=== PATIENT | female | born 1960 | race Caucasian/White ===

== ENCOUNTER → 2023-11-28 | Outpatient (CLI) | payer OTHER ==
[2023-11-28 13:19] VITALS: BP 139/70; PULSE 63; RESP 16; TEMP 98.5
--- NOTE | 2023-11-28 13:50 | P.GSCN ---
History of Present Illness Consult date: 11/28/23 Reason for Consult: mass left breast Requesting physician: Nay Bruce History of present illness: Emili is a 63 year old female seen in consultation for Leela Bruce regarding a lesion in her left breast. She had a left breast mammogram and ultrasound done on 09-23-23, the mammogram revealed a calcified retroareolar nodule and an ultrasound was recommended. The ultrasound revealed a 1.7 x 1.6 cm complex l esion with calcifications and internal blood flow and a lobular margin Impression: Solid partially calcified nodule left breast, suspicious and biopsy considered The patient underwent a ultrasound-guided core biopsy of the area of concern on 10-16-2023. The pathology revealed an adenoma with atypia. The recommendation was for surgical resection. She is uncertain as to when her right breast mammogram was done. She has been able to feel the lesion in he left breast for about three months now. It has gotten larger. It has been painful and created a red spot on the skin, this resolved. The pain is localized. It does not spread, it is sharp, and constant for several hours. She is not sure what precipitated this. She is not complaining of any nipple discharge. She has not had any surgery on her breast. This is the first breast biopsy. Caffeine: 8-10-cups coffee/day nicotine: vape pen; used to smoke 1 PPD for 30 years stopped 3 years ago chocolate occasional Family History: maternal aunt: 2 with breast cancer mother: lung cancer Hormonal History: menarche: 12 G0 menopause: 51 hormones: none Surgical History: fracture tibial plateau Medical HIstory: zoloft for anxiety high cholesterol osteoporesis Social HIstory: nicotine: as above alcohol: occasional drugs: THC gummie at night to sleep Review of Systems - Constitutional Reports sweats - EENT Eyes: denies blurred vision Ears: deny: decreased hearing, tinnitus Ears, nose, mouth and throat: Denies dysphagia - Breasts bilateral: as per HPI - Cardiovascular Denies chest pain, Denies shortness of breath - Respiratory Denies cough, Denies 7 - Gastrointestinal Gastrointestinal Comment(s): GERD Reports as per HPI - Genitourinary Genitourinary: Denies dysuria, Denies hematuria Menstruation: Reports postmenopausal - Musculoskeletal Musculoskeleta Comment(s): osteoporosis Reports as per HPI - Integumentary Denies rash, Denies unusual bruising - Neurological Denies headaches, Denies syncope - Psychiatric Reports anxiety - Endocrine Reports weight change - Hematologic/Lymphatic Denies easy bleeding, Denies easy bruising - Allergic/Immunologic Reports seasonal allergies Past Medical History History of Any Multi-Drug Resistant Organisms: None Reported Smoking Status: Former smoker, Vaper [facility] - Exam Vital Signs Temp Pulse Resp BP Pulse Ox 98.5 F 63 16 139/70 99 11/28/23 13:15 11/28/23 13:15 11/28/23 13:15 11/28/23 13:15 11/28/23 13:15 - General no distress - Eyes normal ocular movement - ENT no hearing loss - Neck trachea midline - Respiratory normal respiratory effort, clear to auscultation - Cardiovascular Heart Sounds: normal: S1, S2 - Abdomen Abdomen: soft, non tender, no guarding, no rigid, no rebound - Integumentary normal turgor - Neurologic no disoriented, no combative - Musculoskeletal normal gait - Psychiatric oriented to time, oriented to person, oriented to place, speech is normal, memory intact Breast Exam: BRA: 38C Inspection: Bilateral grade 3 ptosis, polypoid lesion right nipple Palpation: Right breast: Multi positional exam fibrocystic changes, polypoid lesion right nipple approximately 8 mm in size Right axilla: No adenopathy of concern Left breast: Multi positional exam fibrocystic changes, in the periareolar region at approximately 3:00 there is a proximately a 1.5 cm firm mass this corresponds to what is seen radiographically and what was biopsied Left axilla: No adenopathy of concern Results Left breast mammogram and ultrasound personally reviewed, right breast mammogram was not available Assessment and Plan Assessment: Impression: adenoma left breast with atypia [facility]IST pathology slides to be reviewed by our pathologist Obtain right breast mammogram Plan: Left breast needle localization lumpectomy via a mastopexy incision, left breast oncoplastic tissue transfer, right polypoid nipple lesion resection Risk and benefits of the procedure discussed with the patient. The patient understands the risks include but are not limited to bleeding, infection, reaction to the anesthetic. She wishes to proceed. CC: Nay Bruce
== END ==
LOC: WWCWWP 12:13
PROVIDERS: ATTEND Surgery
DX: R92.1 Mammographic calcification found on diagnostic imaging of breast (principal); N63.20 Unspecified lump in the left breast, unspecified quadrant; N60.89 Other benign mammary dysplasias of unspecified breast; Z87.891 Personal history of nicotine dependence; Z80.3 Family history of malignant neoplasm of breast

== ENCOUNTER → 2024-01-16 | Outpatient (CLI) | payer OTHER ==
--- NOTE | 2024-01-16 10:23 | P.PN ---
Subjective Progress Note Date: 01/16/24 Principal diagnosis: nodule left breast, right nipple lesion mass left breast, lesion right nipple Requesting physician: Nay Bruce History of present illness: Emili is a 63 year old female seen in consultation for Leela Bruce regarding a lesion in her left breast. She is seen via telehealth from [place], she has not seen her personally. She had a left breast mammogram and ultrasound done on 09-23-23, the mammogram revealed a calcified retroareolar nodule and an ultrasound was recommended. The ultrasound revealed a 1.7 x 1.6 cm complex lesion with calcifications and internal blood flow and a lobular margin Impression: Solid partially calcified nodule left breast, suspicious and biopsy considered The patient underwent a ultrasound-guided core biopsy of the area of concern on 10-16-2023. The pathology revealed an adenoma with atypia. The recommendation was for surgical resection. She is uncertain as to when her right breast mammogram was done. She has been able to feel the lesion in he left breast for about six months now. It has gotten larger. It has been painful and created a red spot on the skin, this resolved. The pain is localized. It does not spread, it is sharp, and constant for several hours. She is not sure what precipitated this. She is not complaining of any nipple discharge. She has not had any surgery on her breast. This is the first breast biopsy. On November 29, 2023 a request for pathology slides was sent to [facility]. The paitent is uncertain if a right breast mammogram was done. Caffeine: 8-10-cups coffee/day nicotine: vape pen; used to smoke 1 PPD for 30 years stopped 3 years ago chocolate occasional Family History: maternal aunt: 2 with breast cancer mother: lung cancer Hormonal History: menarche: 12 G0 menopause: 51 hormones: none Surgical History: fracture tibial plateau Medical HIstory: zoloft for anxiety high cholesterol osteoporesis Social HIstory: nicotine: as above alcohol: occasional drugs: THC gummie at night to sleep Review of Systems - Constitutional Reports sweats - EENT Eyes: denies blurred vision Ears: deny: decreased hearing, tinnitus Ears, nose, mouth and throat: Denies dysphagia - Breasts bilateral: as per HPI - Cardiovascular Denies chest pain, Denies shortness of breath - Respiratory Denies cough - Gastrointestinal Gastrointestinal Comment(s): GERD Reports as per HPI - Genitourinary Genitourinary: Denies dysuria, Denies hematuria Menstruation: Reports postmenopausal - Musculoskeletal Musculoskeleta Comment(s): osteoporosis Reports as per HPI - Integumentary Denies rash, Denies unusual bruising - Neurological Denies headaches, Denies syncope - Psychiatric Reports anxiety - Endocrine Reports weight change - Hematologic/Lymphatic Denies easy bleeding, Denies easy bruising - Allergic/Immunologic Reports seasonal allergies Past Medical History History of Any Multi-Drug Resistant Organisms: None Reported Smoking Status: Former smoker, Vaper Objective - Constitutional General appearance: Present: cooperative - EENT Eyes: Present: EOMI ENT: Present: hearing grossly normal - Neck Neck: Present: normal ROM - Respiratory Respiratory: bilateral: CTA - Cardiovascular Heart sounds: normal: S1, S2 - Integumentary Integumentary: Present: normal turgor - Musculoskeletal Musculoskeletal: Present: gait normal - Psychiatric Psychiatric: Present: A&O x's 3, appropriate affect, intact judgment & insight - Additional findings Additional findings: Breast Exam: BRA: 38C Inspection: Bilateral grade 3 ptosis, polypoid lesion right nipple Palpation: Right breast: Multi positional exam fibrocystic changes, polypoid lesion right nipple approximately 8 mm in size Right axilla: No adenopathy of concern Left breast: Multi positional exam fibrocystic changes, in the periareolar region at approximately 3:00 there is a proximately a 1.5 cm firm mass this corresponds to what is seen radiographically and what was biopsied Left axilla: No adenopathy of concern Assessment and Plan Assessment: Left breast mammogram and ultrasound personally reviewed, right breast mammogram was not available Impression: adenoma left breast with atypia pathology slides to be reviewed by our pathologist Obtain right breast mammogram Plan: right breast mammogram to be reviewed left breast slides to be reviewed medical clearance Nay Bruce Left breast needle localization lumpectomy via a mastopexy incision, left breast oncoplastic tissue transfer, right polypoid nipple lesion resection Risk and benefits of the procedure discussed with the patient. The patient understands the risks include but are not limited to bleeding, infection, reaction to the anesthetic. She wishes to proceed. CC: Nay Bruce Additional CC's: Nay Bruce
[2024-01-16 11:04] VITALS: BP 126/70; PULSE 67; RESP 18; TEMP 98.2
--- NOTE | 2024-01-16 12:39 | MM ---
Reason for Exam: Follow-up at short interval from prior study. Last screening mammogram was performed 4 month(s) ago. Patient History: Menarche at age 11. Patient has no children. Postmenopausal. Maternal aunt had breast cancer at or over age 50. Maternal aunt had breast cancer at or over age 50. Risk Values: Leigh 5 year model risk: 1.8%. NCI Lifetime model risk: 7.2%. Prior Study Comparison: 02/12/2022 Bilateral MG 3D screening mammo w/cad, Unknown. 09/23/2023 Left MG 3D diag mammo wo cad LT - 2, Unknown. 10/08/2023 Left MG 3D work up w/cad LT - 2, Unknown. Tissue Density: Right: The breasts are heterogeneously dense, which may obscure small masses. Findings: Analyzed By CAD. Benign oil cyst calcifications redemonstrated on the right. There is some increased focal asymmetry upper-outer quadrant at a middle depth. 3-D images suggest underlying nodularity. On additional views, particularly on the spot 3-D MLO view, there is persistence of low 1.2 cm area of nodular asymmetric density not well localized on the spot 3-D CC view. Further ultrasound evaluation recommended. Overall Assessment: Incomplete: need additional imaging evaluation, BI-RAD 0 Management: Diagnostic Breast Ultrasound of the right breast. Superior half. Electronically signed and approved by: Kim Pritchard M.D. Radiologist
--- NOTE | 2024-01-16 13:23 | USB ---
Reason for Exam: Follow-up at short interval from prior study. Patient History: Menarche at age 11. Patient has no children. Postmenopausal. Maternal aunt had breast cancer at or over age 50. Maternal aunt had breast cancer at or over age 50. Risk Values: Leigh 5 year model risk: 1.8%. NCI Lifetime model risk: 7.2%. Technique: Method: Targeted. Prior Study Comparison: 02/12/2022 Bilateral MG 3D screening mammo w/cad, Unknown. 09/23/2023 Left MG 3D diag mammo wo cad LT - 2, Unknown. 10/08/2023 Left MG 3D work up w/cad LT - 2, Unknown. Findings: The upper section of the breast of the right breast, the axilla of the right breast and the retroareolar of the right breast were scanned. Targeted ultrasound superior half of the right breast from 9:00 to 12:00 including scanning of the subareolar region and axilla. The 12:00 position, 4 cm from the nipple, there is a large hypoechoic shadowing area measuring 4.4 cm, suspected island of dense tissue. Reassess in 6 months. Otherwise, scattered benign cysts are present at 9:00, 10:00, 11:00, and 1:00 varying in size but measuring up to 1.5 cm. No axillary lymphadenopathy. Overall Assessment: Probably benign, BI-RAD 3 Management: Diagnostic Mammogram of the right breast in 6 months. Diagnostic Breast Ultrasound of the right breast in 6 months. Also, continue with planned surgical excision left breast. Results were given to the patient verbally at the time of exam. Electronically signed and approved by: Kim Pritchard M.D. Radiologist
== END ==
LOC: WWCWWP 09:48
PROVIDERS: ATTEND Surgery
DX: Z12.31 Encounter for screening mammogram for malignant neoplasm of breast (principal); R92.8 Other abnormal and inconclusive findings on diagnostic imaging of breast; N63.20 Unspecified lump in the left breast, unspecified quadrant; N63.10 Unspecified lump in the right breast, unspecified quadrant; Z80.3 Family history of malignant neoplasm of breast; Z78.0 Asymptomatic menopausal state; Z87.891 Personal history of nicotine dependence

== ENCOUNTER 2024-01-28 09:54 | Day surgery (SDC) | payer OTHER ==
[~2024-01-28 09:54] MED LIST: HYDROmorphone 0.5 MG/0.5 ML SYRINGE IVP PRN; LIDOCAINE 1% (10MG/ML) FOR IV START INTRADERMA PRN; MIDAZOLAM 2 MG/2 ML VIAL IV PRN
[2024-01-28] MEDS: IV FLUID CONTINUATION 1,000 ML IV ONE (10:30)
[2024-01-28] MEDS: ACETAMINOPHEN TAB 500 MG TAB PO PRN (11:00)
[2024-01-28] MEDS: ALPRAZolam 0.25 MG TAB PO STA (11:00)
[2024-01-28] MEDS: ONDANSETRON 4 MG/2 ML VIAL IVP ONE (11:01)
[2024-01-28] MEDS: DEXAMETHASONE SOD PHOSPHATE 4 MG/ML 1 ML VIAL IV ONE (11:01)
[2024-01-28] MEDS: LACTATED RINGERS 1,000 ML IV SCH (11:01)
[2024-01-28 11:02] LABS: Basophils % (A) 1 %; Eosinophils # (A) 0.1 k/uL (0-0.7); Eosinophils % (A) 2 %; HCT 39.7 % (34.0-46.0); HGB 13.3 gm/dL (11.4-16.0); Lymphocytes # (A) 1.5 k/uL (1.0-4.8); Lymphocytes % (A) 23 %; MCH 30.6 pg (25.0-35.0); MCHC 33.4 g/dL (31.0-37.0); MCV 91.7 fL (80.0-100.0); Mean Platelet Volume 7.9; Monocytes # (A) 0.3 k/uL (0-1.0); Monocytes % (A) 5 %; Neutrophils # (A) 4.2 k/uL (1.3-7.7); Neutrophils % (A) 67 %; Platelet Count 287 k/uL (150-450); RBC 4.33 m/uL (3.80-5.40); RDW 13.5 % (11.5-15.5); WBC 6.3 k/uL (3.8-10.6)
[2024-01-28] MEDS: LIDOCAINE 1% INJ 10MG/ML (20 ML MDV) SQ ONE ×2 (11:39→15:43)
[2024-01-28] MEDS: HEPARIN SODIUM,PORCINE 5,000 UNIT/ML 1 ML VIAL SQ PRN (12:04)
[2024-01-28] MEDS ORDERED: LIDOCAINE 1% INJ 10MG/ML (20 ML MDV) ONE (14:22)
[2024-01-28] MEDS ORDERED: MIDAZOLAM 2 MG/2 ML VIAL ONE (14:22)
[2024-01-28] MEDS ORDERED: PROPOFOL 10 MG/ML 20 ML VIAL IV ONE (14:22)
[2024-01-28] MEDS ORDERED: fentaNYL (PF) 50 MCG/ML 2 ML AMP ONE (14:22)
[2024-01-28] MEDS ORDERED: ePHEDrine 50 MG/ML 1 ML VIAL ONE (14:22)
[2024-01-28] MEDS: LACTATED RINGERS 1,000 ML IV ONE (15:47)
--- NOTE | 2024-01-28 16:03 | P.BCAON ---
Date of Procedure: 01/28/24 Preoperative Diagnosis: Polypoid lesion right nipple, DCIS left breast Postoperative Diagnosis: Same Procedure(s) Performed: Excision polypoid lesion right nipple, left breast needle localization lumpectomy, oncoplastic tissue transfer 68.5 cm, mastopexy Anesthesia: MORIS Surgeon: Reina Lema Estimated Blood Loss (ml): 30 IV fluids (ml): 500 Pathology: other (Right nipple lesion, left breast lesion) Condition: stable Disposition: same day Indications for Procedure: Polypoid lesion right nipple, DCIS left breast Operative Findings: Dense breast tissue on the left Description of Procedure: The patient was first seen in the preoperative area where the left breast was marked for a mastopexy incision. The elevation of the areolar complex was 3 cm on the meridian line. Prior to that she had been seen in the radiology department where needle localization of the area of concern in the left breast was performed. The patient was then brought to the operative suite. Following induction of anesthesia the right and left breast were prepped and draped in a sterile fashion. The right breast was approached initially. A polypoid lesion on the nipple was grasped. This was excised. The base was cauterized. A 4-0 nylon suture was placed. After we are sure that hemostasis was attained gloves and instruments were changed and the left breast was approached. The markings for the mastopexy as it incision were utilized in the left breast. D epithelialization of this tissue was performed. The breast parenchyma was then entered. The dissection was carried down to the shaft of the needle. Surrounding tissue was removed. The specimen was 7 x 5.5 cm in size. Radiograph was performed and the lesion as well as the needle and the clip were identified. Following this the cavity was well evaluated. There was some concern that there may be a positive anterior and posterior margin. Anteriorly we were in the subcutaneous tissue directly under the nipple areolar complex. Posteriorly additional tissue was obtained to the pectoralis muscle. All margins were painted for orientation. The cavity was then well irrigated. After we are sure that hemostasis was attained titanium clips were placed. Surgicel in powder form was placed. Medially mobilization of 5 x 3 cm was performed and laterally a pillar 5 x 3 cm was performed. The medial and lateral pillars were brought together to close the defect. Total oncoplastic tissue transfer was 68.5 cm. After the defect had been closed the subcutaneous tissue was closed using 3-0 Vicryl suture. The subcuticular closure was with a 4-0 Monocryl. A 4-0 nylon was used to close the skin. All instrument and sponge counts were correct at the end of the case. 10 cc of 1% lidocaine were injected into the incision. The patient tolerated the procedure in stable condition. A sterile dressing was applied.
[2024-01-28 16:04] VITALS: TEMP 97
--- NOTE | 2024-01-28 16:06 | MM ---
Risk Values: Leigh 5 year model risk: 1.8%. NCI Lifetime model risk: 7.2%. Electronically signed and approved by: Navneet Olivas D.O. Radiologis
[2024-01-28 17:34] VITALS: BP 122/66; PULSE 91; RESP 18
--- NOTE | 2024-02-06 10:25 | MM ---
Risk Values: Leigh 5 year model risk: 1.8%. NCI Lifetime model risk: 7.2%. Prior Study Comparison: 09/23/2023 Left MG 3D diag mammo wo cad LT - 2, Unknown. 10/08/2023 Left MG 3D work up w/cad LT - 2, Unknown. 01/16/2024 Right MG 3D diag mammo w/cad RT, [facility]. Pathology Description: Approach: CC FA Needle Type: 7 cm Kopan The needle localization procedure with wire placement for surgical excision was explained to the patient. Benefits, alternatives, and risks were discussed. An informed consent was then obtained. A timeout was performed. The overlying skin was prepped in usual sterile fashion. Lidocaine was used as anesthetic into the skin and subcutaneous tissue up to the level of area of concern. A 7 cm needle was used. It was placed using a superior craniocaudal approach under mammographic guidance. Subsequent 90 degrees mammogram show the needle to be in satisfactory position relative to the targeted area. The wire was placed and the needle was withdrawn. The wire was fixed to patient's skin. Images were reviewed surgeon prior to surgery. The patient tolerated the procedure well without any immediate complication. The patient was kept in the radiology department for short stay after the procedure and then taken to surgery for surgical excision. Specimen: Biopsy marker, area of concern calcification and wire are identified in specimen mammogram. Impression: 1. Successful needle localization with wire placement and surgical excision of biopsy marker. [facility], , 01/28/2024 4:03 PM. Pathology Results: Result: Malignant, Invasive ductal carcinoma. Pathology and radiology were reviewed. Findings are concordant. A. LEFT BREAST, LUMPECTOMY: High grade invasive ductal carcinoma with high grade DCIS with microcalcification and comedo necrosis associated with sclerotic fibroadenoma (see Surgical Pathology Cancer Case Summary and comment). Invasive carcinoma closely approaches available posterior margin area. Invasive carcinoma measures 2 mm from closest available anterior margin (see comment). All other margins negative for invasive carcinoma. All margins negative for DCIS with DCIS measuring 2 mm from closest available anterior margin. Positive for lymphovascular invasion. B. POLYPOID LESION RIGHT NIPPLE, EXCISION: Benign polypoid fibroepithelial polyp/skin tag. C. NEW POSTERIOR MARGIN, LEFT BREAST, EXCISION: Intermediate to high grade DCIS (9 mm in greatest dimension) present at new posterior margin (less than 1 mm area of cauterized new posterior margin involved by DCIS) See Surgical Pathology Cancer Case Summary and comment. New posterior margin negative for invasive carcinoma. Overall Assessment: Malignant Management: Surgical Consultation of the left breast. Electronically signed and approved by: Navneet Olivas D.O. Radiologis
== END 2024-01-28 17:31 | disposition home or self-care (01) ==
LOC: OR 09:54
PROVIDERS: ATTEND Surgery
DX: D05.12 Intraductal carcinoma in situ of left breast (principal); L91.8 Other hypertrophic disorders of the skin; E78.5 Hyperlipidemia, unspecified; J44.9 Chronic obstructive pulmonary disease, unspecified
CPT/HCPCS: 76098; 85025; 88304; 88305; 88307; 88341; 88342

== ENCOUNTER → 2024-02-07 | Outpatient (CLI) | payer OTHER ==
[2024-02-07 12:36] VITALS: BP 138/78; PULSE 58; RESP 16; TEMP 98.2
--- NOTE | 2024-02-07 13:14 | P.PN ---
Subjective Progress Note Date: 02/07/24 Principal diagnosis: invasive ductal cancer left breast Subjective Progress Note Date: 02/07/24 Principal diagnosis: nodule left breast, right nipple lesion resected mass left breast, lesion right nipple resected IDC Requesting physician: Nay Bruce History of present illness: Emili is a 63 year old female seen in consultation for Leela Bruce regarding a lesion in her left breast. She was seen via telehealth from [place], she has not seen her personally. She had a left breast mammogram and ultrasound done on 09-23-23, the mammogram revealed a calcified retroareolar nodule and an ultrasound was recommended. The ultrasound revealed a 1.7 x 1.6 cm complex lesion with calcifications and internal blood flow and a lobular margin Impression: Solid partially calcified nodule left breast, suspicious and biopsy considered The patient underwent a ultrasound-guided core biopsy of the area of concern on 10-16-2023. The pathology revealed an adenoma with atypia. The recommendation was for surgical resection. She is uncertain as to when her right breast mammogram was done. She has been able to feel the lesion in he left breast for about six months now. It has gotten larger. It has been painful and created a red spot on the skin, this resolved. The pain is localized. It does not spread, it is sharp, and constant for several hours. She is not sure what precipitated this. She is not complaining of any nipple discharge. She has not had any surgery on her breast. This is the first breast biopsy. On November 29, 2023 a request for pathology slides was sent to [facility]. The paitent is uncertain if a right breast mammogram was done. Caffeine: 8-10-cups coffee/day nicotine: vape pen; used to smoke 1 PPD for 30 years stopped 3 years ago chocolate occasional right breast mammogram done on 01-16-24 and repeat in [address] Pritchard left breast pathology reviewed by our pathologist and upgraded to DCIS patient underwent needle localization and excision on 01-29-24 and invasive cancer (13 mm) as well as DCIS (11 mm) noted; DCIS at cauterized margin posterior resection on the pect muscle Family History: maternal aunt: 2 with breast cancer mother: lung cancer Hormonal History: menarche: 12 G0 menopause: 51 hormones: none Surgical History: fracture tibial plateau Medical HIstory: zoloft for anxiety high cholesterol osteoporesis Social HIstory: nicotine: as above alcohol: occasional drugs: THC gummie at night to sleep Review of Systems - Constitutional Reports sweats - EENT Eyes: denies blurred vision Ears: deny: decreased hearing, tinnitus Ears, nose, mouth and throat: Denies dysphagia - Breasts bilateral: as per HPI - Cardiovascular Denies chest pain, Denies shortness of breath - Respiratory Denies cough - Gastrointestinal Gastrointestinal Comment(s): GERD Reports as per HPI - Genitourinary Genitourinary: Denies dysuria, Denies hematuria Menstruation: Reports postmenopausal - Musculoskeletal Musculoskeleta Comment(s): osteoporosis Reports as per HPI - Integumentary Denies rash, Denies unusual bruising - Neurological Denies headaches, Denies syncope - Psychiatric Reports anxiety - Endocrine Reports weight change - Hematologic/Lymphatic Denies easy bleeding, Denies easy bruising - Allergic/Immunologic Reports seasonal allergies Past Medical History History of Any Multi-Drug Resistant Organisms: None Reported Smoking Status: Former smoker, Vaper Objective - Vital Signs Vital signs: Vital Signs Temp 98.2 F 02/07/24 12:33 Pulse 58 L 02/07/24 12:33 Resp 16 02/07/24 12:33 BP 138/78 02/07/24 12:33 Pulse Ox 98 02/07/24 12:33 FiO2 Intake & Output 02/06/24 02/07/24 02/07/24 18:59 06:59 18:59 Weight 78.925 kg - Constitutional General appearance: Present: cooperative - EENT Eyes: Present: EOMI ENT: Present: hearing grossly normal - Neck Neck: Present: normal ROM - Respiratory Respiratory: bilateral: CTA - Cardiovascular Rhythm: regular Heart sounds: normal: S1, S2 - Integumentary Integumentary: Present: normal turgor - Musculoskeletal Musculoskeletal: Present: gait normal - Psychiatric Psychiatric: Present: A&O x's 3, appropriate affect, intact judgment & insight - Additional findings Additional findings: Breast Exam: BRA: 38C Inspection: Right nipple clean and dry, left breast incision clean and dry Palpation: Right breast: Multi positional exam fibrocystic changes Right axilla: No adenopathy of concern Left breast: Incision clean and dry left breast from recent lumpectomy Left axilla: No adenopathy of concern Assessment and Plan Assessment: Impression: Left breast lumpectomy 1.3 cm invasive ductal carcinoma margins negative, 1.1 cm ductal carcinoma in situ focal positive margin posteriorly on the pectoralis muscle; reexcision however since this is dissected posteriorly to the pectoralis muscle it was not felt that reexcision would be beneficial. Plan: Left breast sentinel node injection, left sentinel node biopsy, possible left axillary node dissection The patient's case has been discussed with Dr. Domingo Martinez. He is in agreement that a sentinel node biopsy would be reasonable approach. I have discussed this with the patient as well as her brother who is a cardiothoracic surgeon. Risk and benefits of the procedure are discussed. Risk include but are not limited to bleeding, infection, reaction to the anesthetic. Additionally there could be some decrease sensation to the inner arm or lymphedema. She understands and wishes to proceed. CC: Nay Bruce
== END ==
LOC: WWCWWP 11:01
PROVIDERS: ATTEND Surgery
DX: C50.912 Malignant neoplasm of unspecified site of left female breast (principal); N63.10 Unspecified lump in the right breast, unspecified quadrant; Z80.3 Family history of malignant neoplasm of breast; Z87.891 Personal history of nicotine dependence; Z17.1 Estrogen receptor negative status [ER-]

== ENCOUNTER 2024-02-11 10:03 | Day surgery (SDC) | payer OTHER ==
[~2024-02-11 10:03] MED LIST changes: +fentaNYL (PF) 50 MCG/ML 2 ML AMP IVP PRN
[2024-02-11] MEDS: IV FLUID CONTINUATION 1,000 ML IV ONE (10:20)
[2024-02-11] MEDS: DEXAMETHASONE SOD PHOSPHATE 4 MG/ML 1 ML VIAL IV ONE (10:46)
[2024-02-11] MEDS: ONDANSETRON 4 MG/2 ML VIAL IVP ONE (10:46)
[2024-02-11] MEDS: LACTATED RINGERS 1,000 ML IV SCH (10:46)
[2024-02-11] MEDS: ACETAMINOPHEN TAB 500 MG TAB PO PRN (10:47)
[2024-02-11 10:57] VITALS: RESP 16
[2024-02-11] MEDS: HEPARIN SODIUM,PORCINE 5,000 UNIT/ML 1 ML VIAL SQ PRN (11:11)
[2024-02-11] MEDS ORDERED: LIDOCAINE 1% INJ 10MG/ML (20 ML MDV) ONE (13:03)
[2024-02-11] MEDS ORDERED: PROPOFOL 10 MG/ML 20 ML VIAL IV ONE (13:03)
[2024-02-11] MEDS ORDERED: KETOROLAC 15 MG/ML 1 ML VIAL ONE (13:03)
[2024-02-11] MEDS ORDERED: GLYCOPYRROLATE 0.2 MG/ML 2 ML VIAL ONE (13:03)
[2024-02-11] MEDS ORDERED: SUCCINYLCHOLINE CHLORIDE 200 MG/10 ML VIAL IV ONE (13:03)
[2024-02-11] MEDS ORDERED: fentaNYL (PF) 50 MCG/ML 2 ML AMP ONE (13:03)
--- NOTE | 2024-02-11 13:03 | NM ---
EXAMINATION TYPE: NM sentinel node injection DATE OF EXAM: 02/11/2024 COMPARISON: NONE CLINICAL INDICATION: Female, 63 years old with history of C50.412; TECHNIQUE AND FINDINGS: The procedure of sentinel lymph node injection was explained to the patient. The benefits, alternatives, and risks were discussed. An informed consent was then obtained. Overlying skin is cleaned with sterile alcohol. Following this, 549 uCi Tc99m Tilmanocept was inject ed in the upper outer aspect of the left nipple intradermally. The patient tolerated the procedure well without any immediate complication. The patient was kept in the radiology department for short stay after the procedure and then taken to surgery for surgical p rocedure what is presumed intraoperative gamma probe will be used for sentinel lymph node detection. IMPRESSION: Left breast radiotracer injection for sentinel node localization as above. [facility], , 02/11/2024 1:01 PM
[2024-02-11] MEDS: LIDOCAINE 1% INJ 10MG/ML (20 ML MDV) SQ ONE ×2 (13:28→13:53)
--- NOTE | 2024-02-11 13:50 | P.NAPBC ---
NAPBC Queries - NAPBC Queries Was patient's case review presented at [facility] tumor board? If no, comment.: Yes Was patient's pathology reviewed at [facility]? If no, comment.: Yes Was breast conservation surgery offered? If no, comment.: Yes Was sentinel node biopsy offered? If no, comment.: Yes Was diagnosis confirmed by percutaneous core biopsy? If no, comment.: Yes Is patient mastectomy patient?: No Was a preop referral to reconstructive surgeon offered?: No Clinical Stage: T1 N0 M0 ER negative UT negative HER2 pending invasive ductal carcinoma left breast
--- NOTE | 2024-02-11 13:53 | P.BCAON ---
Date of Procedure: 02/11/24 Preoperative Diagnosis: Left breast invasive ductal carcinoma Postoperative Diagnosis: Same Procedure(s) Performed: Left sentinel node biopsy Anesthesia: MORIS Surgeon: Reina Lema Estimated Blood Loss (ml): 5 IV fluids (ml): 500 Pathology: other (Friendship node left axilla) Operative Findings: Palpable adenopathy left axilla Description of Procedure: The patient was seen first by the radiologist and periareolar injection of radial tracer was performed. The patient was brought to the operative suite and following induction of anesthesia the neoprobe was used to interrogate the axilla. Radiotracer had traveled to the axilla. An incision was made at the area of greatest activity. It was carried down into the subcutaneous tissue to the axillary tissue. 4 lymph nodes which were radioactive were identified. The first had a 10-second count of 1078, the second a 10-second count of 364, and the third a 10-second count of 1443, the fourth a 10-second count of 1259. The background 10-second count was 7. No additional adenopathy of concern was palpable. The wound was well irrigated. The deep tissues were closed using 3-0 Vicryl suture. The skin was closed using 4-0 Monocryl. The patient tolerated the procedure in stable condition. All instrument and sponge counts were correct at the end of the case. Surgical glue was applied to the incision. 10 cc of 1% lidocaine were injected into the area of the incision. The nylon suture from prior lumpectomy in the periareolar region was removed and surgical glue was applied. - Sentinal Node Biopsy Operation performed with curative intent: Yes Tracer(s) used in upfront surgery (non-neoadjuvant): radioactive tracer Tracer(s) used in the neoadjuvant setting: N/A All nodes present at end of dye-filled channel removed: N/A All significantly radioactive nodes were removed: Yes All palpably suspicious nodes were removed: Yes Clipped positive nodes identified and removed: N/A
[2024-02-11 14:15] VITALS: TEMP 97.1
[2024-02-11 15:57] VITALS: BP 142/71; PULSE 75
== END 2024-02-11 10:46 | disposition home or self-care (01) ==
LOC: OR 10:03
PROVIDERS: ATTEND Surgery
DX: C50.412 Malignant neoplasm of upper-outer quadrant of left female breast
CPT/HCPCS: 38792; 88307; 88341; 88342

== ENCOUNTER → 2024-02-20 | Outpatient (CLI) | payer OTHER ==
[2024-02-20 15:26] VITALS: BP 140/73; PULSE 63; RESP 17; TEMP 98.4
--- NOTE | 2024-02-20 16:19 | P.PN ---
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 [id number] pending She therefore underwent a left breast sentinal node biopsy on 02-11-24. Four nodes were removed. 1 of 4 (+) from mmacrometastatic disease. Examination: lungs: Clear Heart: Regular rate and rhythm Incision: Breast and axilla clean and dry Impression: T1 N1 M0 ER negative DC negative HER2 question invasive left breast ductal carcinoma Plan: Appointment with medical oncology Appointment radiation oncology Follow-up here in 4 months CC: Leela Bruce Functional assessment: Arm abduction past Copy of pathology report given to patient post op education done 02-20-24 Objective - Vital Signs Vital signs: Vital Signs Temp 98.4 F 02/20/24 15:23 Pulse 63 02/20/24 15:23 Resp 17 02/20/24 15:23 BP 140/73 02/20/24 15:23 Pulse Ox 96 02/20/24 15:23 FiO2 Intake & Output 02/19/24 02/20/24 02/20/24 18:59 06:59 18:59 Weight 77.564 kg
== END ==
LOC: WWCWWP 13:50
PROVIDERS: ATTEND Surgery
DX: D05.12 Intraductal carcinoma in situ of left breast (principal)

== ENCOUNTER → 2024-03-03 | Outpatient (CLI) | payer OTHER ==
--- NOTE | 2024-03-03 19:10 | CT ---
EXAMINATION TYPE: CT ChestAbdPelvis w con CT DLP: 957.2 mGycm, Automated exposure control for dose reduction was used. DATE OF EXAM: 03/03/2024 3:23 PM COMPARISON: None. CLINICAL INDICATION: Female, 63 years old with history of C50.412 breast ca; [facility], Recently diagnosed with breast CA, PET scan was denied for unknown reason. Technique: CT ChestAbdPelvis w con; Multiple axial images were obtained. Two-dimensional coronal and sagittal reconstructions were obtained. Contrast used:100ml mL of Isovue 300 with IV Contrast, (None if empty) Oral contrast used: with Oral Contrast Findings: CHEST: LUNGS/ PLEURA: No focal consolidation, pneumothorax or pleural effusion. Mild centrilobular emphysema changes. AIRWAY: Patent and unremarkable. HEART: Size within normal limits. MEDIASTINUM: No gross evidence of adenopathy.r nonenlarged AP window lymph nodes measuring up to 6 mm in short axis. VASCULATURE: No aortic aneurysm. MUSCULOSKELETAL: No acute osseous abnormalities. SOFT TISSUES/LYMPH NODES: Post procedural changes left breast with suspected underlying seroma. No gr eater than 1.0 cm in short axis lymph nodes. There is lymph nodes in the left axilla near the surgica l site. LOWER NECK: No significant findings. ABDOMEN: ABDOMEN LIVER: Hepatic cysts. GALLBLADDER AND BILE DUCTS: Unremarkable. PANCREAS: Unremarkable. SPLEEN: Unremarkable. ADRENAL GLANDS: Unremarkable. KIDNEYS AND URETERS: No evidence of hydronephrosis or renal calculus. The ureters are unremarkable. PELVIS BLADDER: Unremarkable REPRODUCTIVE: Unremarkable. ABDOMEN & PELVIS STOMACH AND BOWEL: No evidence of bowel obstruction. PERITONEUM/RETROPERITONEUM: No evidence of pneumoperitoneum or free fluid. VASCULATURE: No evidence of aortic aneurysm. MUSCULOSKELETAL: No acute osseous abnormalities, no suspicious osseous lesions visualized. Superior e ndplate deformity to the L3 vertebrae with superimposed Schmorl's node. Scattered other Schmorl's nod es and degeneration changes throughout the spine. LYMPH NODES: No gross evidence for lymphadenopathy. SOFT TISSUE/ABDOMINAL WALL: Fat-containing inguinal hernias right greater than left. Fat-containing u mbilical hernia. IMPRESSION: 1. Posttreatment changes left breast and left axilla with small seromas in place. No evidence for me tastatic disease definitively visualized. No lymphadenopathy. 2. Mild emphysema changes. 3. Right hepatic lobe simple appearing cyst. [facility], , 03/03/2024 7:07 PM
== END | disposition home or self-care (01) ==
LOC: RADCTMAIN 13:15
PROVIDERS: ATTEND Surgery
CPT/HCPCS: 71260; 74177